=== PATIENT | male | born 1960 | race Caucasian/White ===

== ENCOUNTER 2016-11-06 23:02 | Emergency (ER) | payer BC ==
[~2016-11-06 23:02] MED LIST: ACAMPROSATE CALCIUM PO; CARDIZEM LA240 MG PO; FUROSEMIDE40 MG PO; VICODIN EQUIVAL1 TAB PO
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
--- NOTE | 2016-11-07 00:12 | ED ORDER SUMMARY ---
..... Patient: HILLARY COPE OrderSheet [facility] VisitID: [id number] [address] [place] [address] 56y, M Registration Date/Time: 11/06/2016 ORDER SHEET Weight: 95.2 kg (stated) Allergies: Hydrocodone GENERAL ORDERS: CT Head wo Cont (posterior scalp hematoma; patient intoxicated) Urgent (23:20 11/06/2016 [facility]) (Ack 23:30 Ced) (23:45 Filippo) Breathalyzer (23:23 11/06/2016 [facility]) (Ack 23:24 HKone R.N.) (0:08 Martha RAWLS Bank Manager) (0:09 HKone R.N.) MEDICATION ORDERS: Acetaminophen PO 500 mg (NOW) (23:54 [facility]/06/2016 [facility] ) (Ack 0:05 HKone R.N.) (0:09 HKone R.N.) IV FLUIDS: ORDER SHEET NOTES: [Electronically signed by Chencho Caba DO (01:43 11/07/2016)] [Electronically signed by Petrona Medrano R.N. (05:56 11/07/2016)] [Electronically locked/signed by Petrona Medrano R.N. (05:56 11/07/2016)]
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
--- NOTE | 2016-11-07 00:12 | ED ORDER SUMMARY ---
..... Patient: HILLARY COPE OrderSheet [facility] VisitID: [id number] [address] [place] [address] 56y, M Registration Date/Time: 11/06/2016 ORDER SHEET Weight: 95.2 kg (stated) Allergies: Hydrocodone GENERAL ORDERS: CT Head wo Cont (posterior scalp hematoma; patient intoxicated) Urgent (23:20 11/06/2016 [facility]) (Ack 23:30 Ced) (23:45 Filippo) Breathalyzer (23:23 11/06/2016 [facility]) (Ack 23:24 HKone R.N.) (0:08 Martha RAWLS Electronic Test Technician) (0:09 HKone R.N.) MEDICATION ORDERS: Acetaminophen PO 500 mg (NOW) (23:54 [facility]06[facility]2016 [facility] (Ack 0:05 HKone R.N.) (0:09 HKone R.N.) IV FLUIDS: ORDER SHEET NOTES: [Electronically signed by Chencho Caba DO (01:43 11/07/2016)] [Electronically signed by Petrona Medrano R.N. (05:56 11/07/2016)] [Electronically locked/signed by Petrona Medrano R.N. (05:56 11/07/2016)]
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
--- NOTE | 2016-11-07 05:57 | ED MAR SUMMARY ---
..... Medication Administration Record [address] [place] [address] Patient: HILLARY COPE Visit ID: [id number] 56y, M Weight: 95.2 kg Height/Length: 72 in BMI: 28.5 ALLERGIES: Hydrocodone Given 00:09 11/07/2016 Petrona Medrano R.N. Medication Administered: ACETAMINOPHEN [PO] (APAP), Dose: 500 mg Tablets PO. Medication Ordered: Acetaminophen PO 500 mg (NOW).
--- NOTE | 2016-11-07 05:57 | ED MED RECONCILIATION SUMMARY ---
Patient: HILLARY COPE Medication Reconciliation Report [facility] VisitID: [id number] [address] [place] [address] 56y, M Registration Date/Time: 11/06/2016 Weight: 95.2 kg Height/Length: 72 in. BMI: 28.5 ALLERGIES: Hydrocodone The patient's Home Medications are listed below: CONTINUE TAKING THE FOLLOWING MEDICATIONS: Furosemide Oral Lisinopril Oral The source(s) of the original Home Medication information: patient The following Medications were given to the patient in the Emergency Department: Acetaminophen [PO] PO 500 mg, administered: 11/07/2016 12:09:00 AM The following Medications were prescribed to the patient: Acetaminophen (available over the counter): take according to label instructions. -- Chencho Caba DO Motrin (available over the counter): take according to label instructions. -- Chencho Caba DO
--- NOTE | 2016-11-07 05:57 | ED MAR SUMMARY ---
..... Medication Administration Record [address] [place] [address] Patient: HILLARY COPE Visit ID: [id number] 56y, M Weight: 95.2 kg Height/Length: 72 in BMI: 28.5 ALLERGIES: Hydrocodone Given 00:09 11/07/2016 Petrona Medrano R.N. Medication Administered: ACETAMINOPHEN [PO] (APAP), Dose: 500 mg Tablets PO. Medication Ordered: Acetaminophen PO 500 mg (NOW).
--- NOTE | 2016-11-07 05:57 | ED MED RECONCILIATION SUMMARY ---
Patient: HILLARY COPE Medication Reconciliation Report [facility] VisitID: [id number] [address] [place] [address] 56y, M Registration Date/Time: 11/06/2016 Weight: 95.2 kg Height/Length: 72 in. BMI: 28.5 ALLERGIES: Hydrocodone The patient's Home Medications are listed below: CONTINUE TAKING THE FOLLOWING MEDICATIONS: Furosemide Oral Lisinopril Oral The source(s) of the original Home Medication information: patient The following Medications were given to the patient in the Emergency Department: Acetaminophen [PO] PO 500 mg, administered: 11/07/2016 12:09:00 AM The following Medications were prescribed to the patient: Acetaminophen (available over the counter): take according to label instructions. -- Chencho Caba DO Motrin (available over the counter): take according to label instructions. -- Chencho Caba DO
== END 2016-11-07 00:17 | disposition home or self-care (01) ==
LOC: ED SRH 23:02
DX: S00.03XA Contusion of scalp, initial encounter (principal); S40.022A Contusion of left upper arm, initial encounter; F10.220 Alcohol dependence with intoxication, uncomplicated; I10 Essential (primary) hypertension; Y04.8XXA Assault by other bodily force, initial encounter; Y93.9 Activity, unspecified; Y92.009 Unspecified place in unspecified non-institutional (private) residence as the place of occurrence of the external cause; Y99.9 Unspecified external cause status; Z79.899 Other long term (current) drug therapy

== ENCOUNTER 2017-01-16 09:59 | Inpatient (IN) | payer BC ==
[~2017-01-16] VITALS: Ht 190.5 cm; Wt 95.3 kg
--- NOTE | 2017-01-16 11:20 | DIAGNOSTIC IMAGING REPORT ---
PROCEDURE: CT HEAD WITHOUT CONTRAST INDICATION: NEW-[place] SZ TECHNIQUE: Noncontrast axial images with sagittal and coronal reformations. COMPARISON: None. FINDINGS: Moderate cortical atrophy. Normal ventricular system and brain parenchyma. Small left cord fissure cyst. No evidence of acute intracranial process. Resolving left parietal scalp contusion. Minor left frontal, ethmoid, right sphenoid and bilateral maxillary sinus mucosal thickening. Mastoids are clear. IMPRESSION: 1. Resolving left parietal scalp contusion. 2. Moderate cortical atrophy 3. Findings discussed with Dr. Ng at 11:18 a.m.[facility] Time
--- NOTE | 2017-01-16 11:20 | DIAGNOSTIC IMAGING REPORT ---
PROCEDURE: CT HEAD WITHOUT CONTRAST INDICATION: [place] SZ TECHNIQUE: Noncontrast axial images with sagittal and coronal reformations. COMPARISON: None. FINDINGS: Moderate cortical atrophy. Normal ventricular system and brain parenchyma. Small left cord fissure cyst. No evidence of acute intracranial process. Resolving left parietal scalp contusion. Minor left frontal, ethmoid, right sphenoid and bilateral maxillary sinus mucosal thickening. Mastoids are clear. IMPRESSION: 1. Resolving left parietal scalp contusion. 2. Moderate cortical atrophy 3. Findings discussed with Dr. Ng at 11:18 a.m.[facility] Time
--- NOTE | 2017-01-16 11:22 | DIAGNOSTIC IMAGING REPORT ---
PROCEDURE: XR CHEST 2 VIEW INDICATION: FEVER TECHNIQUE: PA and lateral view. COMPARISON: None. FINDINGS: Lungs are clear. Heart size, mediastinum and pulmonary vessels are normal. Mildly tortuous aorta. Partial eventration of the right hemidiaphragm. Chronic fractures of the lower thoracic and upper lumbar spine. IMPRESSION: 1. No acute changes.
--- NOTE | 2017-01-16 12:33 | ED CLINICAL REPORT ---
Clinical Report - Physicians/Mid Levels [facility] [address] [place] [address] 01/16/2017 9:58 Patient: HILLARY COPE Time Seen: 1000. Arrived- By ambulance. Historian- patient and EMS personnel. HISTORY OF PRESENT ILLNESS Chief Complaint: FEVER and SHAKING. possible seizure. This started atient states he started to feel generally unwell about 2 days ago after his had been sick. He states he did not have specific symptoms just did not feel well. Patient states that the next day he felt better however. and is still present. He has had measured fever of 103 F. No muscle aches, loss of appetite, chest pain, dyspnea or cough. No decreased oral intake, diarrhea, altered mental status, skin breakdown noted or joint pain. He has had fatigue. No decreased urine output. He has had skin rash (Patient has chronic psoriasis.). Additional history - The patient has had contact with a sick spouse. ( had generalized illness without specific symptoms per patient.). Has not recently been ill. He is not immunocompromised. No organ transplant. No recent hospitalization. No new medication recently administered. No history of cancer. No history of HIV illness. No indwelling line. No recent travel. No known exposure to an animal. No drug use. No alcohol recently. No Alatorre catheter. Patient denies noticing any pain or redness in his lower extremities other than his chronic psoriatic rash. per EMSpatient's awoke to find the patient hot and shaking in bed. When the looked at the patient she found he was foaming at the mouth. Seizure like activity is estimated to have lasted 10-12 minutes. When EMS arrived patient appeared post ictal. Per medics he is improved over the course of transport. Patient has no seizure history, including no history of febrile seizures as a child and no history of alcohol-related seizures. Patient has had no recent head injury. Patient denies any neck pain or stiffness. He denies headache or photophobia. Similar symptoms previously: None. Recent medical care: ( Patient's primary doctor is Dr. Worthy.). Not recently seen/assessed. REVIEW OF SYSTEMS No anorexia, weight loss, palpitations, calf pain or sputum production. No nausea, constipation, black stools, difficulty with urination or flank pain. No vomiting, headache, sinus pain, sore throat or easy bruising. No enlarged lymph nodes, neck pain or back pain. All systems otherwise negative, except as recorded above. PAST HISTORY Problems: Alcohol Intoxication. Dehydration. Hypertension. Tetanus Status. Additional Surgeries: Hip Surgery. Inguinal Hernia Repair. Shoulder Surgery. SOCIAL HISTORY Former smoker. Occasional alcohol use. No drug use. PHYSICAL EXAM Appearance: Alert. No acute distress. (Patient is well-appearing. He is alert and answers questions briskly and appropriately.). Eyes: Pupils equal, round and reactive to light. Eyes normal inspection. ENT: Ears normal. Nose normal. Pharynx normal. Uvula midline. Neck: Normal inspection. Neck supple. No meningeal signs. CVS: Normal heart rate and rhythm. Heart sounds normal. Pulses normal. Respiratory: No respiratory distress. Breath sounds normal. Abdomen: Soft and nontender. Back: Normal inspection. No tenderness. Skin: Skin warm and dry. Normal skin turgor. (Patient has a psoriatic-appearing rash on his bilateral lower extremities. His left calf is otherwise normal. His right lower leg, however, is intensely erythematous from the ankle to just below the knee.). Extremities: Extremities exhibit normal ROM. Extremities nontender. Neuro: Oriented X 3. No motor deficit. No sensory deficit. (Patient is alert and appropriate. He does not appear postictal at this time.). LABS, X-RAYS, AND EKG Rhythm Strip #1: Time: (1002). Rate= 124. Sinus tachycardia. Regular rhythm. Narrow QRS complexes. No ectopy. Conduction normal. Normal ST segments and T waves. The study was interpreted by me. Chest X-ray: No acute disease. Normal lung markings present. Normal heart size. Mediastinum normal. Great vessels normal. Soft tissues normal. No infiltrate. No fracture. No bony lesion present. Views: PA and lateral. Technique: good. The X-rays were independently viewed by me, interpreted by the radiologist and contemporaneously by me and discussed with the radiologist. Prior films were not available for comparison. Laboratory Tests: UA-Culture if indicated: (IVAN: 01/16/2017 11:23) ( MsgRcvd 01/16/2017 11:46) Final results Test Result Flag Units (Reference) URINE COLOR YELLOW URINE APPEARANCE CLEAR URINE GLUCOSE 1+ (NEGATIVE) URINE BILIRUBIN NEGATIVE (NEGATIVE) URINE KETONE NEGATIVE (NEGATIVE) URINE SPECIFIC GRAVITY 1.025 (1.010-1.030) URINE PH 6.0 (5.0-8.0) URINE PROTEIN 1+ (NEGATIVE) URINE UROBILINOGEN 0.2 EU/dL (0.2-1.0) URINE NITRITE NEGATIVE (NEGATIVE) URINE BLOOD 3+ (NEGATIVE) URINE LEUK ESTERASE NEGATIVE (NEGATIVE) URINE RBC 0-1 rbc/hpf (0-1) URINE WBC NONE SEEN wbc/hpf (0-1) URINE EPITHELIAL CELLS 0-1 EPI/hpf (0-5) URINE BACTERIA TRACE (<1+) (NONE SEEN) URINE COMMENT CULT NOT INDICATED 1-3 HYALINE CASTS/lpfURINE CULTURES ARE SET-UP BASED ON THE FOLLOWING CRITERIA:POSITIVE NITRITEPOSITIVE LEUKOCYTE ESTERASEGREATER THAN 10 WHITE BLOOD CELLSMODERATE (2+) OR GREATER BACTERIA CBC w Diff: (IVAN: 01/16/2017 10:32) ( MsgRcvd 01/16/2017 10:53) Final results Test Result Flag Units (Reference) WHITE BLOOD COUNT 14.9 # H K/uL (4.5-11.5) RED BLOOD COUNT 4.77 M/uL (4.50-5.90) HEMOGLOBIN 14.4 gm/dL (13.5-17.5) HEMATOCRIT 43.3 % (41.0-53.0) MEAN CELL VOLUME 91 fL (80-100) MEAN CORPUSCULAR HGB 30 pg (26-34) MEAN CORPUSCULAR HGB CONC 33 g/dL (31-37) RED CELL DISTRIBUTION WIDTH 17.8 H % (11.6-14.8) PLATELET COUNT 202 K/uL (150-400) NEUTROPHIL % 91.4 H % (50-75) LYMPH % 4.2 L % (25-40) MONO % 4.3 % (3-14) EOSINOPHIL % 0 % (0-4) BASOPHIL % 0.1 % (0-2) [id number]: (IVAN: 01/16/2017 10:32) ( [facility] 01/16/2017 15:12) Final results Test Result Flag Units (Reference) C-REACTIVE PROTEIN 17.1 H mg/dL (0.0-0.9) Lactate, Serum: (IVAN: 01/16/2017 10:32) ( [facility] 01/16/2017 11:24) Final results Test Result Flag Units (Reference) LACTIC ACID 3.2 H mmol/L (0.4-2.0) CRITICAL RESULTS CALLEDCalled to [facility] IN ED 01/16/17 1123Were 2 patient identifiers used? YWas the result read back? N CMP: (IVAN: 01/16/2017 10:32) ( [facility] 01/16/2017 11:10) Final results Test Result Flag Units (Reference) GLUCOSE 144 H mg/dL (70-110) BUN 7 mg/dL (7-18) CREATININE 1.0 mg/dL (0.6-1.3) Estimated GFR >60 mL/min Estimated GFR- >60 mL/min Note: Persistent reduction over 3 months in eGFR<60 mL/min/1.73 m2 defines CKD. Patients with eGFR values>=60 mL/min/1.73 m2 may also have CKD if evidence ofpersistent proteinuria. Additional information may be foundat [email or web address].org. SODIUM 135 # L mmol/L (136-145) POTASSIUM 3.1 # L mmol/L (3.5-5.1) CHLORIDE 98 mmol/L (98-107) CARBON DIOXIDE 25 mmol/L (21-32) CALCIUM 7.9 L mg/dL (8.5-10.1) TOTAL PROTEIN 6.9 g/dL (6.4-8.2) ALBUMIN 2.9 L g/dL (3.3-5.0) BILIRUBIN, TOTAL 0.4 mg/dL (0.0-1.0) ALKALINE PHOSPHATASE 76 U/L (46-116) AST (SGOT) 44 H U/L (15-37) ALT (SGPT) 32 U/L (12-78) CSF, Cell Count: (IVAN: 01/16/2017 14:00) ( [facility] [place] 01/16/2017 15:02) Final results Test Result Flag Units (Reference) CSF TOTAL VOLUME 4.0 CC TUBE # 4 COLOR COLORLESS APPEARANCE CLEAR CSF WBC 0 WBC/mm3 (0-5) CSF RBC 0 RBC/mm3 (0-5) CSF GLUCOSE 93 H mg/dL (40-75) CSF PROTEIN 33.7 mg/dL (15-45) CSF, Culture: (IVAN: 01/16/2017 14:00) ( [facility] 01/16/2017 15:10) IP Test Result Flag Units (Reference) GRAM STAIN, CSF DATE: 01/16/17 NO CELLS/NO BACTERIA: NO CELLS OR BACTERIA SEEN Rapid Influenza Screen: (IVAN: 01/16/2017 14:06) ( [facility] 01/16/2017 14:39) Final results SPECIMEN DESCRIPTION: SWAB Test Result Flag Units (Reference) RAPID INFLUENZA SCREEN DATE: 01/16/17 INFLUENZA A: NEGATIVE SCREEN FOR INFLUENZA A INFLUENZA B: NEGATIVE SCREEN FOR INFLUENZA B . Pulse Oximetry: 01/16/2017 09:55 O2 saturation: 96%. (FIO2 - room air). Interpretation: normal. PROGRESS AND PROCEDURES Procedural Sedation: Indication: (Anxiolysis for LP). Last po intake: patient had liquid 1 hours ago. ASA classification: 2 - patient with mild systemic disease. History / physical exam. See physical exam recorded above. He has no history of an adverse anesthesia reaction or family history of an adverse anesthesia reaction. Normal airway anatomy. Preparation: consent was obtained and the risks of the procedure, benefits and alternatives were explained. IV established. O2 administered. Placed on pulse oximeter and national stormwater leader. Suction was made available. Medications: Versed IV administered by nurse. Patient status during sedation: was asleep. Vitals were stable. Oxygen saturation levels were normal. The airway was maintained. The recovery was uneventful. Complications: None. Post-procedure: Recovery was uneventful. Sedation and procedure performed by me; intra-service time 1-15 minutes. Lumbar Puncture: Lumbar puncture performed by me. Risks, benefits and alternatives were discussed. Consent was obtained from relative. Sterile technique was used. The area was cleansed with Betadine. Patient was positioned right side down. LP performed at the L3-4 interspace. A 20g needle was used. No complications observed. Course of Care: This patient was evaluated by myself immediately upon arrival in the emergency department with EMS. He was fairly well-appearing. However I was concerned about the height of his fever and his new onset seizure activity. I did feel that the obvious cellulitis on his right lower leg was certainly a potential source of the fever and as such, I did order IV vancomycin to be started as soon as all the laboratory draws were done. I did consider potential diagnosis of meningitis given his fever and seizure-like activity; however, I did not find any other symptoms concerning for meningitis at this time, such as altered mental status, nuchal rigidity, or neck pain. Patient was also treated for his fever with by mouth Tylenol and IV Toradol. He was given a liter of normal saline as a bolus. Patient was found to have an elevated white blood cell count which is not surprising, but otherwise his workup did not reveal an additional source of infection. Patient was found to have an elevated lactate level. I did feel the patient should be worked up with a lumbar puncture due to his elevated lactate level and new onset seizure. I did discuss this with the patient and his family. The patient's stated that the patient's deathly afraid of needles and the patient initially declined to have an LP done. However, I did offer him sedation in order to be able to successfully complete the procedure, and the patient did agree to this. Patient was sedated with Versed as noted above and lumbar puncture was performed without difficulty. Patient's CSF studies were unremarkable. He remained hemodynamically stable throughout his stay in the emergency department. Discussed case with hospitalist, (Krystle). Reviewed test results and need for additional work-up. Agreed upon treatment plan and decision to admit. Health care provider will see patient in ED. Patient and family counseled in person regarding the patient's serious condition, test results, diagnosis and need for admission. Old medical records reviewed. Disposition: Admitted to Acute Care. Condition: stable and serious. CLINICAL IMPRESSION New onset generalized seizure of unknown cause, associated with illness. Cellulitis of the right lower leg and right ankle. Possible sepsis (With elevated lactate level and tachycardia). (Electronically signed by Kathya Ng MD 01/19/2017 22:42)
--- NOTE | 2017-01-16 12:33 | ED ORDER SUMMARY ---
..... Patient: HILLARY COPE OrderSheet [facility] VisitID: [id number] [address] [place] [address] 56y, M Registration Date/Time: 01/16/2017 ORDER SHEET Weight: 97.5 kg (stated) Allergies: Hydrocodone GENERAL ORDERS: Blood Culture (No) (N/A) Urgent (10:17 01/16/2017 Venkatesh MATUTE) (Ack 10:24 PWeiler ER Tech1) (10:44 RMarsden R.N.) Chest 2V Urgent (10:18 01/16/2017 Vnekatesh MATUTE) (Ack 10:24 PWeiler ER Tech1) (10:51 JSimbeck R.N.) Cutter Barrel Drum (Continuous) (10:01/16/2017 Venkatesh MATUTE) (10:26 JSimbeck R.N.) CT Head wo Cont Urgent (10:01/16/2017 Venkatesh MATUTE) (Ack 10:24 PWeiler ER Tech1) (10:51 JSimbeck R.N.) CBC w Diff Urgent (10:19 01/16/2017 Venkatesh MATUTE) (Ack 10:24 PWeiler ER Tech1) (10:44 RMarsden R.N.) CMP Urgent (10:19 01/16/2017 Venkatesh MATUTE) (Ack 10:24 PWeiler ER Tech1) (10:44 RMarsden R.N.) UA-Culture if indicated Urgent (10:01/16/2017 Venkatesh MATUTE) (Ack 10:24 PWeiler ER Tech1) (11:11 RMarsden R.N.) Lactate, Serum Urgent (10:19 01/16/2017 Venkatesh MATUTE) (Ack 10:24 PWeiler ER Tech1) (10:44 RMarsden R.N.) Pulse oximeter (10:01/16/2017 Venkatesh MATUTE) (10:26 JSimbeck R.N.) Rapid Influenza Screen (Nasal Pharyngeal) (swab) Urgent (12:46 01/16/2017 Venkatesh MATUTE) (Ack 12:51 PWeiler ER Tech1) (14:09 JSimbeck R.N.) Tibia/Fibula Right Urgent (13:23 01/16/2017 Venkatesh MATUTE) (Ack 13:29 PWeiler ER Tech1) Toe Right Urgent (13:01/16/2017 Venkatesh MATUTE) (Ack 13:29 PWeiler ER Tech1) CSF, Cell Count Urgent (13:01/16/2017 Venkatesh MATUTE) (Ack 13:29 PWeilola ER Tech1) (14:10 JSimbeck R.N.) CSF, Culture Urgent (13:01/16/2017 Venkatesh MATUTE) (Ack 13:29 PWeiler ER Tech1) (14:10 JSimbeck R.N.) CSF, Glucose Urgent (13:01/16/2017 Venkatesh MATUTE) (Ack 13:29 EMMIEeilola ER Tech1) (14:10 JSimbeck R.N.) CSF, Protein Urgent (13:01/16/2017 Venkatesh MATUTE) (Ack 13:29 PWeiler ER Tech1) (14:10 JSimbeck R.N.) MEDICATION ORDERS: Acetaminophen PO 1,000 mg (NOW) (10:01/16/2017 Venkatesh MATUTE) (10:43 RMarsden R.N.) IV FLUIDS: IV NS : initial bolus 1000 mL (1000 mL/hr), then none - (NOW) (10:01/16/2017 Venkatesh MATUTE) (10:45 RMarsden R.N.) Toradol IV 30 mg (NOW) (10:01/16/2017 Venkatesh MATUTE) (10:42 RMarsden R.N.) Vancomycin IV 2 gm/500 mL (NOW) (10:19 01/16/2017 Venkatesh MATUTE) (Ack 10:45 RMarsden R.N.) (11:26 RMarsden R.N.) IV NS with Normal Saline 1 Liter: initial bolus none -, then TKO - for X1 (NOW) (11:28 01/16/2017 RMarsden R.N. per protocol) (Ack 11:29 RMarsden R.N.) (11:42 RMarsden R.N.) Versed IV 2 mg (NOW) (14:11 01/16/2017 JSimbeck R.N. verbal order read back to Venkatesh MATUTE) (14:41 RMarsden R.N.) Versed IV 2 mg (NOW) (14:11 01/16/2017 Lizz Villarreal verbal order read back to Venkatesh MATUTE) (14:41 Jeanette Villarreal) Versed IV 2 mg (NOW) (14:12 01/16/2017 Lizz Villarreal verbal order read back to Venkatesh MATUTE) (14:42 Jeanette Villarreal) ORDER SHEET NOTES: [Electronically signed by Geovanna Nettles R.N. (18:16 01/16/2017)] [Electronically signed by Kathya Ng MD (22:42 01/19/2017)] [Electronically locked/signed by Geovanna Nettles R.N. (18:16 01/16/2017)]
--- NOTE | 2017-01-16 12:33 | ED NURSING NOTES ---
Clinical Report - Nurses [facility] [place] [address] 01/16/2017 9:58 [id number] TRI[facility] Triage time 10:00. Acuity: LEVEL 2. Chief Complaint: FEVER (seizure). 11:00 01/16/17. Alert. No acute distress. SEPSIS SCREEN: Sepsis Screen. Negative (no infection suspected/documented). JANET COMA SCORE: [place] Coma Scale: 15- eyes open spontaneously (4); best verbal response- oriented x 4 (5); best motor response- obeys commands (6). --11:00 Geovanna Nettles R.N. 09:55 01/16/17. BP: 150/83. HR: 129. RR: 21. O2 saturation: 96%. Temp: 100.5 F (oral). Pain level now: 11/26. --11:00 Geovanna Nettles R.N. ( All triage took place at 10:00). --11:09 Geovanna Nettles R.N. 10:15. SEPSIS SCREEN: Sepsis Screen: positive. Infection suspected/documented. Temperature greater than 38.3 degrees C (101 degrees F), heart rate greater than 90 and respiratory rate greater than 20. Physician notified and protocol initiated. --11:14 Deion Cheung R.N. Weight: 97.5 kg stated. Height/Length: 72 inches Per Patient. BMI: 29.2. --10:00 Deion Cheung R.N. Medications Diltiazem HCl Oral. --10:53 Geovanna Nettles R.N. Furosemide Oral. --11:38 Deion Cheung R.N. Allergies Hydrocodone. --10:53 Geovanna Nettles R.N. History Arrived by EMS. Historian: patient. Accompanied by family. This started yesterday. Treatment INDUSTRIAL RELATIONS OFFICER: None. PAST MEDICAL HX: Immunizations: up-to-date. SOCIAL HX: Never smoker. No alcohol use or drug use. FALL RISK ASSESSMENT: Fall risk assessment completed. No fall risk identified. NUTRITIONAL RISK ASSESSMENT: The nutritional risk assessment revealed no deficiencies. FUNCTIONAL ASSESSMENT: Functional assessment: no impairments noted. LEARNING NEEDS ASSESSMENT: The learning needs assessment revealed no barriers. SKIN INTEGRITY ASSESSMENT: Skin integrity risk assessment completed. No skin integrity risk identified. --11:00 Geovanna Nettles R.N. PROBLEMS: Mechanism of Injury. Alcohol Intoxication. Contusion. Dehydration. Gastritis. Laceration. Hypertension. Tetanus Status. --10:53 Geovanna Nettles R.N. Spleen injury. --11:21 Deion Cheung R.N. ADDITIONAL SURGERIES: Hip Surgery. Inguinal Hernia Repair. Shoulder Surgery. --10:53 Geovanna Nettles R.N. Spleen surgery. --11:21 Deion Cheung R.N. Interventions ID band on patient. ID band checked. SEPSIS protocol initiated at triage. To treatment room. --11:00 Geovanna Nettles R.N. PHYSICAL ASSESSMENT 10:00. GENERAL / NEURO / PSYCH: Alert. Oriented X 4. Appears in no acute distress. ( Patient appears to have some short-term memory loss over the events of the last 24 hours. Patient remembers going to bed last night, and then remembers waking up to EMS at his house. Patient appears drowsy, but is easily aroused.). HEENT: Pupils equal, round and reactive to light. No facial asymmetry noted. Mucous membranes are pink. RESPIRATORY: Chest nontender. Breath sounds within normal limits. ( Patient was tachypnic). CVS: Capillary refill less than 2 seconds. Pulses within normal limits. GI / : Abdomen soft and nontender and normal bowel sounds. EXTREMITIES: Skin intact on the extremities. Capillary refill is less than 2 seconds in the extremities. Extremity pulses are within normal limits. Extremities exhibit normal ROM. SKIN: Large area of erythema with warmth and swelling to right leg (3+ edema). Skin rash located on the left leg (psoriasis noted). Skin intact. Skin is warm and dry. Normal skin turgor. --11:08 Geovanna Nettles R.N. NURSING PROGRESS NOTES 09:50 01/16/2017 Site #1 started prior to arrival by EMS via IV in the right antecubital space with an 18g angiocath. --10:39 Geovanna Nettles R.N. 09:50 01/16/2017 Started bag #1 1000 mL IV Fluids IV NS (Saline); bolus of 1000 mL wide open via site #1. Allergies verified and confirmed 5 rights. IV patency established. IV site checked: no pain, redness, or swelling. IV flushed thoroughly pre- and post-medication administration. Completed per protocol. --10:45 Geovanna Nettles R.N. 10:25 01/16/2017 Site #2 started via IV in the left forearm with an 18g angiocath; two attempts. Blood drawn: rainbow set and cultures x1. Labeled in the presence of the patient and sent to the lab. Saline lock flushed with 10 mL saline. --11:10 Geovanna Nettles R.N. 10:40 01/16/2017 Toradol IVP 30 mg given over 2 minute(s) via site #1. Allergies verified and confirmed 5 rights. IV patency established. IV site checked: no pain, redness, or swelling. IV flushed thoroughly pre- and post-medication administration. IVP given by RN. --10:42 Geovanna Nettles R.N. 10:43 01/16/2017 Acetaminophen (APAP) PO Tablets 1000 mg given. Allergies verified and confirmed 5 rights. --10:43 Geovanna Nettles R.N. 10:44 01/16/17. Patient transported to CT by stretcher with tech. --10:44 Geovanna Nettles R.N. <<STRICKEN ENTRY-- 11:11 01/16/17. Blood samples drawn. Patient gowned. Patient returned from CT by stretcher with tech. --11:11 Geovanna Nettles R.N. --END STRIKE>> Correction --11:11 Geovanna Nettles R.N. 11:11 01/16/17. Patient returned from CT by stretcher with tech. --11:11 Geovanna Nettles R.N. Lactate level: 3.2. ED physician notifed of critical value. Orders were not received. --11:24 Deion Cheung R.N. 11:14 01/16/2017 IV Fluids IV NS Discontinued: bag #1 completed. Total amount infused: 1000 mL. IV patency established. IV site checked: no pain, redness, or swelling. IV flushed thoroughly. --11:29 Geovanna Nettles R.N. 11:21 01/16/2017 Started 2 gm of Vancomycin IVPB in bag #1 400 mL; at 200 mL/hr over 1 hour(s) via site #2; Allergies verified and confirmed 5 rights. IV patency established. IV site checked: no pain, redness, or swelling. IV flushed thoroughly pre- and post-medication administration. Completed per protocol. --11:26 Geovanna Nettles R.N. 11:42 01/16/2017 Started bag #1 1000 mL IV Fluids IV NS (Saline); at 50 mL/hr over 20 hour(s) via site #1 via IV pump. Allergies verified and confirmed 5 rights. IV patency established. IV site checked: no pain, redness, or swelling. IV flushed thoroughly pre- and post-medication administration. Completed per protocol. --11:42 Geovanna Nettles R.N. 10:05 01/16/17. Temp: 102.1 F (rectal). --12:05 Deion Cheung R.N. <<STRICKEN ENTRY-- 10:00 01/16/17. BP: 150/83 taken on the left arm, while lying. HR: 121 (regular and tachycardic). RR: 21. O2 saturation: 97%. Temp: 102.1 F (rectal). Pain level now: 11/26. --12:26 Geovanna Nettles R.N. --END STRIKE>> Correction. --12:27 Geovanna Nettles R.N. 10:15 01/16/17. BP: 150/83 taken on the left arm, while lying. HR: 121 (regular and tachycardic). RR: 21. O2 saturation: 97%. Temp: 102.1 F (rectal). Pain level now: 11/26. --12:26 Geovanna Nettles R.N. 10:15 01/16/17. BP: 150/83 taken on the left arm, while lying. HR: 121 (regular and tachycardic). RR: 21. O2 saturation: 97%. Temp: 102.1 F (rectal). Pain level now: 11/26. --12:35 Geovanna Nettles R.NSarath 10:30 01/16/17. HR: 121. RR: 22. O2 saturation: 98%. --12:35 Geovanna Nettles R.NSarath 12:36 01/16/17. ( patient ambulated to bathroom with nurse and patient's .). --12:36 Geovanna Nettles R.NSarath 11:00 01/16/17. HR: 120. RR: 20. O2 saturation: 93%. --12:37 Geovanna Nettles R.NSarath 11:15 01/16/17. BP: 125/85. HR: 117. RR: 20. O2 saturation: 94%. Pain level now: 11/26. --12:38 Geovanna Nettles R.NSarath 11:30 01/16/17. BP: 138/79. HR: 114. RR: 19. O2 saturation: 94%. --12:38 Geovanna Nettles R.NSarath 11:45 01/16/17. BP: 123/84. HR: 113. RR: 17. O2 saturation: 95%. --12:40 Geovanna Nettles R.NSarath 12:00 01/16/17. BP: 126/88. HR: 108. RR: 17. O2 saturation: 94%. --12:54 Geovanna Nettles R.NSarath 12:15 01/16/17. BP: 136/91. HR: 116. RR: 16. O2 saturation: 96%. --12:55 Geovanna Nettles R.NSarath 12:30 01/16/17. BP: 135/83. HR: 116. RR: 21. O2 saturation: 93%. --12:56 Geovanna Nettles R.NSarath 12:45 01/16/17. BP: 135/83. HR: 109. RR: 17. O2 saturation: 92%. --12:56 Geovanna Nettles R.NSarath 11:45 01/16/2017 IV Fluids IV NS Bag Change. STARTED bag #2 at 50 mL/hr via IV pump. Confirmed 5 rights. IV patency established. IV site checked: no pain, redness, or swelling. IV flushed thoroughly. --14:16 Deion Cheung R.N. 13:50 01/16/2017 Versed (Midazolam HCl) IVP 2 mg given over 30 second(s) via site #1. Sedative warning given to the patient and patient's family. IV patency established. IV site checked: no pain, redness, or swelling. IV flushed thoroughly pre- and post-medication administration. IVP given by RN. --14:41 Geovanna Nettles R.N. 13:54 01/16/2017 Versed (Midazolam HCl) IVP 2 mg given over 30 second(s) via site #1. Sedative warning given to the patient and patient's family. IV patency established. IV site checked: no pain, redness, or swelling. IV flushed thoroughly pre- and post-medication administration. IVP given by RN. --14:41 Geovanna Nettles R.N. 14:00 01/16/2017 Versed (Midazolam HCl) IVP 2 mg given over 2 minute(s) via site #1. Sedative warning given to the patient and patient's family. IV patency established. IV site checked: no pain, redness, or swelling. IV flushed thoroughly pre- and post-medication administration. IVP given by RN. --14:42 Geovanna Nettles R.N. 14:02 01/16/2017 Vancomycin IVPB Discontinued: completed. Total amount infused: 400 mL. IV patency established. IV site checked: no pain, redness, or swelling. IV flushed thoroughly. --14:42 Geovanna Nettles R.N. 13:00 01/16/17. BP: 127/81. HR: 107. RR: 17. O2 saturation: 97%. Temp: 97.8 F (oral). Pain level now: 10/29. --18:04 Geovanna Nettles R.N. 13:15 01/16/17. BP: 121/82. HR: 110. RR: 18. O2 saturation: 96%. --18:05 Geovanna Nettles R.N. 13:30 01/16/17. BP: 133/85. HR: 106. RR: 17. O2 saturation: 94%. --18:06 Geovanna Nettles R.N. 13:45 01/16/17. BP: 100/53. HR: 111. RR: 18. O2 saturation: 93%. --18:06 Geovanna Nettles R.N. 14:00 01/16/17. BP: 101/67. HR: 109. RR: 18. O2 saturation: 93%. --18:07 Geovanna Nettles R.N. 14:15 01/16/17. BP: 99/63. HR: 107. RR: 17. O2 saturation: 96% on nasal cannula at 2 liters/minute. Pain level now: 0/10. --18:08 Geovanna Nettles R.N. 14:30 01/16/17. BP: 98/53. HR: 105. RR: 17. O2 saturation: 99%. Pain level now: 0/10. --18:09 Geovanna Nettles R.N. 14:45 01/16/17. BP: 130/93. HR: 100. RR: 16. O2 saturation: 99%. Temp: 97.5 F (oral). Pain level now: 2/10. --18:10 Geovanna Nettles R.N. 15:00 01/16/17. BP: 129/94. HR: 102. RR: 17. O2 saturation: 98%. Pain level now: 0/10. --18:11 Geovanna Nettles R.N. ( Patient was placed on 2L O2 at 13:45 and remained on O2 for the duration of his stay in the ED. Patient was transported to the floor on 2L O2.). --18:13 Geovanna Nettles R.N. 15:00 01/16/2017 Site #1 removed upon admission. Catheter intact. Manual pressure and bandaid applied (Patient's IV fell out when he rolled over during admission transport.). --18:16 Geovanna Nettles R.N. Procedural Sedation Flowsheet Diagnosis: Lumbar puncture for fever, seizure. Procedure performed by ED physician and assisted by two nurses and one machine maintenance technician. Patient / family education: explanation of procedure, procedural sedation process, post procedure process, need for ride home and post procedure sedation instructions given to patient and family. Preparation: ID band on patient and consent obtained per patient; order, History and Physical, and meds documented; pulse oximeter, pvc monitor, NIBP and ETCO2 monitor placed on patient. Oxygen applied to patient via nasal cannula at 2 liter/min. (see procedural sedation documentation for procedure details.). --14:55 Geovanna Nettles R.N. DISPOSITION / DISCHARGE Report was given to a nurse via a phone call. Report included patient's care, treatment, medications, reviewed medication reconcilliation, and condition (including any recent changes or anticipated changes). All questions were answered. Report was acknowledged and care was transferred. Bed obtained (201). --15:10 Geovanna Nettles R.N. 15:08 01/16/17. BP: 130/93. HR: 94. RR: 15. O2 saturation: 95%. Pain level now: 0/10. --15:10 Geovanna Nettles R.N. Admitted to Acute Care (15:05). Transported via stretcher by nurse with IV and O2. --18:12 Geovanna Nettles R.N. 14:45 01/16/17. BP: 130/93. HR: 100. RR: 16. O2 saturation: 99%. Temp: 97.5 F (oral). Pain level now: 2/10. --18:14 Geovanna Nettles R.N. ( IV was saline locked with one bag of saline hanging during admit transport.). --18:15 Geovanna Nettles R.N. Locked/Released at 01/16/2017 18:16 by Geovanna Nettles R.N.
--- NOTE | 2017-01-16 12:33 | ED ORDER SUMMARY ---
..... Patient: HILLARY COPE OrderSheet [facility] VisitID: [id number] [address] [place] [address] 56y, M Registration Date/Time: 01/16/2017 ORDER SHEET Weight: 97.5 kg (stated) Allergies: Hydrocodone GENERAL ORDERS: Blood Culture (No) (N/A) Urgent (10:17 01/16/2017 Venkatesh MATUTE) (Ack 10:24 PWeiler ER Tech1) (10:44 RMarsden R.N.) Chest 2V Urgent (10:18 01/16/2017 Venkatesh MATUTE) (Ack 10:24 PWeiler ER Tech1) (10:51 JSimbeck R.N.) Fish Smoker (Continuous) (10:01/16/2017 Venkatesh MATUTE) (10:26 JSimbeck R.N.) CT Head wo Cont Urgent (10:01/16/2017 Venkatesh MATUTE) (Ack 10:24 PWeiler ER Tech1) (10:51 JSimbeck R.N.) CBC w Diff Urgent (10:19 01/16/2017 Venkatesh MATUTE) (Ack 10:24 PWeiler ER Tech1) (10:44 RMarsden R.N.) CMP Urgent (10:19 01/16/2017 Venkatesh MATUTE) (Ack 10:24 PWeiler ER Tech1) (10:44 RMarsden R.N.) UA-Culture if indicated Urgent (10:01/16/2017 Venkatesh MATUTE) (Ack 10:24 PWeiler ER Tech1) (11:11 RMarsden R.N.) Lactate, Serum Urgent (10:19 01/16/2017 Venkatesh MATUTE) (Ack 10:24 PWeiler ER Tech1) (10:44 RMarsden R.N.) Pulse oximeter (10:01/16/2017 Venkatesh MATUTE) (10:26 JSimbeck R.N.) Rapid Influenza Screen (Nasal Pharyngeal) (swab) Urgent (12:46 01/16/2017 Venkatesh MATUTE) (Ack 12:51 PWeiler ER Tech1) (14:09 JSimbeck R.N.) Tibia/Fibula Right Urgent (13:23 01/16/2017 Venkatesh MATUTE) (Ack 13:29 PWeiler ER Tech1) Toe Right Urgent (13:01/16/2017 Venkatesh MATUTE) (Ack 13:29 PWeiler ER Tech1) CSF, Cell Count Urgent (13:01/16/2017 Venkatesh MATUTE) (Ack 13:29 PWeilola ER Tech1) (14:10 JSimbeck R.N.) CSF, Culture Urgent (13:01/16/2017 Venkatesh MATUTE) (Ack 13:29 PWeiler ER Tech1) (14:10 JSimbeck R.N.) CSF, Glucose Urgent (13:01/16/2017 Venkatesh MATUTE) (Ack 13:29 EMMIEeilola ER Tech1) (14:10 JSimbeck R.N.) CSF, Protein Urgent (13:01/16/2017 Venkatesh MATUTE) (Ack 13:29 PWeiler ER Tech1) (14:10 JSimbeck R.N.) MEDICATION ORDERS: Acetaminophen PO 1,000 mg (NOW) (10:01/16/2017 Venkatesh MATUTE) (10:43 RMarsden R.N.) IV FLUIDS: IV NS : initial bolus 1000 mL (1000 mL/hr), then none - (NOW) (10:01/16/2017 Venkatesh MATUTE) (10:45 RMarsden R.N.) Toradol IV 30 mg (NOW) (10:01/16/2017 Venkatesh MATUTE) (10:42 RMarsden R.N.) Vancomycin IV 2 gm/500 mL (NOW) (10:19 01/16/2017 Venkatesh MATUTE) (Ack 10:45 RMarsden R.N.) (11:26 RMarsden R.N.) IV NS with Normal Saline 1 Liter: initial bolus none -, then TKO - for X1 (NOW) (11:28 01/16/2017 RMarsden R.N. per protocol) (Ack 11:29 RMarsden R.N.) (11:42 RMarsden R.N.) Versed IV 2 mg (NOW) (14:11 01/16/2017 JSimbeck R.N. verbal order read back to Venkatesh MATUTE) (14:41 RMarsden R.N.) Versed IV 2 mg (NOW) (14:11 01/16/2017 Lizz Villarreal verbal order read back to Venkatesh MATUTE) (14:41 Jeanette Villarreal) Versed IV 2 mg (NOW) (14:12 01/16/2017 Lizz Villarreal verbal order read back to Venkatesh MATUTE) (14:42 Jeanette Vilalrreal) ORDER SHEET NOTES: [Electronically signed by Geovanna Nettles R.N. (18:16 01/16/2017)] [Electronically signed by Kathya Ng MD (22:42 01/19/2017)] [Electronically locked/signed by Geovanna Nettles R.N. (18:16 01/16/2017)]
--- NOTE | 2017-01-16 14:52 | Progress Note ---
Subjective General Admission History and Physical Examination Patient Name: Edward Koch Admission Date: January 16, 2017 Primary Care Provider: Arnie Estrada M.D. Attending Physician: Mark Dalton M.D. Admitting Physician: Mark Dalton M.D. Code Status: Full Code Room: , AC-Inpatient SUBJECTIVE Historian: Family (spouse) Reliability: Good Chief Complaint: Right lower extremity pain with infection Seizure and altered mental status, weakness History of Present Illness: The patient is a 56-year-old white female with a significant past medical history of hypertension, psoriasis, alcohol use who presented to [facility] emergency department on the day of admission secondary to complaints of altered right lower leg pain, swelling, redness, infection, mental status, weakness secondary to an a.m. seizure, The [facility] ER evaluation was consistent with acute cellulits of the right leg, in inconclusive etiology for seizure, unknown etiology for weakness and fatigue. Secondary to the above, the patient was admitted by Mark Dalton M.D. for further evaluation and treatment. The history of present was apparently began having illness, not feeling well for nearly 3 days prior to admission. He reports that his family was ill during the 3 days leading up to his illness,. He reports that he was feeling better, but then overnight he had a profound worsening. His found him this morning approxiametely 8:00 am waking up to a fever. He was found to have a fever of 103. She reports that the seizure went on and lasted for nearly 10 minutes. His called the aid car, who confirm patient had likely seizure and he was transported to the [facility] ED. He denied headaches or photophobia. There, he was evaluated and found to have a cellulitis right extremity. He was found to be tachycardic. CT scan of the brain was negative for intracranial process, acute or chronic. Patient was prepped for LP prior to admission. Patient's medical history is relatively unremarkable other than the psoriasis. Patient has not been taking a biologic for the skin, but does use a lotion on the skin,. Patient is on diltiazem for hypertension and he is on Lasix for swelling in the lower extremities. Secondary to the above the patient was admitted for further evaluation and treatment. PAST MEDICAL HISTORY Illnesses: 1. Hypertension 2. Psoriasis 3. Osteoarthritis 4. Gastritis 5. Alcohol use Allergies: 1. Hydrocodone Medications: 1. Diltiazem 180 mg daily. 2. Furosemide 20 mg by mouth daily. Surgery: 1. Hip surgery 2. Inguinal hernia repair. 3. Shoulder surgery Injuries: 1. Shoulder lower extremity Hospitalizations: 1. For above surgery and medical problems FAMILY HISTORY Parents: 1. Father, 87 years old, lalive and well 2. Mother, 79 years old, alive and well Other significant family history: None SOCIAL HISTORY 1. Marital Status 2. Restorationist: Unknown 3. Education: Unknown 4. 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 Occupational health exposures: None HABITS 1. Tobacco: remote hx of smoking 2. Drugs: None 3. Alcohol: daily 2 beers per day. 4. Caffeine: HEALTH SUPERVISION Item/Test; unavailable health record IMMUNIZATIONS: Unavailable health record 1. Pneumococcal: Unknown 2. Influenza: Unknown 3. Tetanus: Unknown ADVANCED DIRECTIVES 1. Living will: None 2. POLST: No 3. CODE STATUS: Full code 4. 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 Donor card: No REVIEW OF SYSTEMS Remarkable for those things stated in the history of present illness and past medical history. 14 point review of system completed with the following notable findings: Constitutional Fever, Weakness. Eyes Denies: Vision Change. ENT Denies: Nose Pain, Nasal Congestion, Throat Swelling. Respiratory Denies: Wheezing. Cardiovascular Denies: Palpitations, PND, Edema. Gastrointestinal Denies: Diarrhea, Constipation. Genitourinary Denies: Hematuria. Musculoskeletal Leg Pain. Skin Other. Neurological Seizures. Denies: Incoordination. Physical Exam Vital Signs / I&Os Vital Signs Date Time Temp Pulse Resp B/P Pulse O2 O2 Flow FiO2 Ox Delivery Rate 01/16 1409 2.0 BP 150/83, heart rate 129, respiratory rate 21, O2 sats 96% room air, temperature 100.5 General Appearance Oriented X3, Cooperative, Mild distress, hypersomnolent, arousable, HEENT PERRLA, EOMI Lungs Clear to auscultation, Normal air movement Neck No JVD Cardiovascular Normal S1 and S2 Abdomen Normal bowel sounds, Soft Extremities No cyanosis, No edema Skin No Breakdown Neurological Normal gait, Normal speech, Cranial nerves intact, No lateralizing signs Psych/Mental Status Mood normal LAB Results Laboratory Tests 01/16 01/16 01/16 01/16 1032 1032 1032 1123 Chemistry Plasma Sodium (136 - 145 mmol/L) 135 Plasma Potassium (3.5 - 5.1 mmol/L) 3.1 Plasma Chloride (98 - 107 mmol/L) 98 CO2 (Enzymatic) (21 - 32 mmol/L) 25 BUN (7 - 18 mg/dL) 7 Creatinine (0.6 - 1.3 mg/dL) 1.0 Est GFR ( Amer) (mL/min) >60 Est GFR (Non-Af Amer) (mL/min) >60 Glucose (70 - 110 mg/dL) 144 Lactic Acid (0.4 - 2.0 mmol/L) 3.2 Plasma Calcium (8.5 - 10.1 mg/dL) 7.9 Total Bilirubin (0.0 - 1.0 mg/dL) 0.4 AST (15 - 37 U/L) 44 ALT (12 - 78 U/L) 32 Alkaline Phosphatase (46 - 116 U/L) 76 C-Reactive Protein Pending Total Protein (6.4 - 8.2 g/dL) 6.9 Albumin (3.3 - 5.0 g/dL) 2.9 Hematology WBC (4.5 - 11.5 K/uL) 14.9 RBC (4.50 - 5.90 M/uL) 4.77 Hgb (13.5 - 17.5 gm/dL) 14.4 Hct (41.0 - 53.0 %) 43.3 MCV (80 - 100 fL) 91 MCH (26 - 34 pg) 30 RDW (11.6 - 14.8 %) 17.8 Neut % (Auto) (50 - 75 %) 91.4 Lymph % (Auto) (25 - 40 %) 4.2 [place] % (Auto) (3 - 14 %) 4.3 Eos % (Auto) (0 - 4 %) 0 Baso % (Auto) (0 - 2 %) 0.1 Plt Count, EDTA (150 - 400 K/uL) 202 PUBS MCHC (31 - 37 g/dL) 33 Urines Urine Color YELLOW Urine Appearance CLEAR Urine pH (5.0 - 8.0) 6.0 Ur Specific [place] (1.010 - 1.030) 1.025 Urine Protein (NEGATIVE) 1+ Urine Ketones (NEGATIVE) NEGATIVE Urine Blood (NEGATIVE) 3+ Urine Nitrite (NEGATIVE) NEGATIVE Urine Bilirubin (NEGATIVE) NEGATIVE Urine Urobilinogen (0.2 - 1.0 EU/dL) 0.2 Ur Leukocyte Esterase (NEGATIVE) NEGATIVE Urine RBC (0 - 1 rbc/hpf) 0-1 Urine WBC (0 - 1 wbc/hpf) NONE SEEN Ur Epithelial Cells (0 - 5 EPI/hpf) 0-1 Urine Bacteria (NONE SEEN) TRACE (<1+) Urine Glucose (NEGATIVE) 1+ Urine Comment CULT NOT INDICATED 01/16 1400 Other Body Source CSF Tube Number 4 CSF Volume (CC) 4.0 CSF Appearance CLEAR CSF Color COLORLESS CSF WBC (0 - 5 WBC/mm3) 0 CSF RBC (0 - 5 RBC/mm3) 0 CSF Glucose (40 - 75 mg/dL) Pending CSF Total Protein (15 - 45 mg/dL) Pending Microbiology Date/Time Procedure - Status Source Growth 01/16 1406 Influenza Screen - COMP NASALPHAR 01/16 1403 Superficial Wound Culture - ORD LEG 01/16 1403 Gram Stain - ORD LEG 01/16 1400 CSF Culture - RECD CSF 01/16 1400 Gram Stain - RECD CSF 01/16 1315 Blood Culture - RECD BLOOD 01/16 1032 Blood Culture - RECD BLOOD Imaging IMPRESSION: 1. Resolving left parietal scalp contusion. 2. Moderate cortical atrophy Assessment and Plan Problem List 1. Cellulitis Plan Significant onset of cellulitis in the right lower extremity. There is signs of ulceration and redness tissue erythematous changes in the lower extremity. The cellulitic changes still appears to be circumferential. Patient will be started on IV vancomycin to 8 hours based pharmacy dosing schedule. Patient appears to have septic characteristics. Patient has an elevated lactic acid. Patient is a new onset seizure. Emergency department performed LP. Fluids are being evaluated. Patient has a long history of psoriasis. This is mostly affecting the Flexeril surfaces. Patient has not been on any biologic prescription for the condition. Patient has a topical ointment for care of the esions. 2. Tachycardia Plan Tachycardia in the setting of a cellulitis potential septic risk. Patient on diltiazem for blood pressure control. Continue with the same dosage. 3. New onset seizure Plan New-onset seizure. As of this morning. Following numbers and cultures from the LP. Given current findings. Patient at risk for meningitis. Patient was also given ceftriaxone 2 g every 24 4. Sepsis Plan Septic potential. Elevated lactic acid. New-onset seizure with fever. Following blood cultures, urine cultures. Continue fluid hydration. Plan vancomycin every 12 hours. Starting ceftriaxone 2 g every 24 5. Elevated lactic acid level Plan Elevated lactic acid levels. Will watch for any trends. 6. Seizure Plan New onset seizure. This is in the setting of a setting of fever and septic potential. 7. Psoriasis Plan Long-standing psoriasis affecting mostly lower extremity. As the probable source of the infectious agent. Following blood cultures. Skin cultures pendin 8. EtOH dependence Plan Patient with a history of alcohol use. Patient using alcohol on a daily basis. Patient will be placed on alcohol withdrawal protocol. Current status: Fair, unstable Anticipated discharge date: Anticipated discharge in 2 days Anticipated discharge placement: Home Patient care time: Time spent in chart review, patient interview, physical exam, CPOE, and care documentation: 70 minutes Visit to patient today: 1 Complexity of care: High Initial patient evaluation: Emergency department DVT prophylaxis: Lovenox 40 mg subcutaneous daily GI prophylaxis: 20 mg famotidine IV twice a day. E&M Codes Admission: Inpt-High/30358
[2017-01-16 15:44] VITALS: BP 144/90
--- NOTE | 2017-01-16 17:03 | DIAGNOSTIC IMAGING REPORT ---
PROCEDURE: XR TIBIA AND FIBULA - RIGHT INDICATION: CELLULITIS TECHNIQUE: AP and lateral views. COMPARISON: None. FINDINGS: Mild subcutaneous edema of the calf proximally but no radiopaque foreign bodies or subcutaneous air. Bones are unremarkable. IMPRESSION: 1. Subcutaneous edema consistent with a history of cellulitis.
--- NOTE | 2017-01-16 17:07 | DIAGNOSTIC IMAGING REPORT ---
PROCEDURE: XR TOE - RIGHT INDICATION: CELLULITIS TECHNIQUE: Three views. COMPARISON: Right foot x-ray 06/20/2016. FINDINGS: There is a 4 mm filiform radiopaque soft tissue foreign body in the distal and plantar aspect of the right great toe distal phalanx. There is soft tissue swelling. Bones are unremarkable. IMPRESSION: 1. Foreign body in the tip of the right great toe with soft tissue swelling suggestive of cellulitis
[2017-01-16 18:20] VITALS: BP 153/99
[2017-01-16 20:10] VITALS: BP 139/89
[2017-01-16 22:39] VITALS: BP 134/75
[2017-01-17 03:34] VITALS: BP 134/75
[2017-01-17 06:15] VITALS: BP 144/95
--- NOTE | 2017-01-17 08:18 | Progress Note ---
Subjective General NO CONCERNS Constitutional Fever. Denies: Chills, Sweats, Weakness, Malaise, Other. Eyes Pain, Vision Change, Conjunctival Inflammation, Eyelid Inflammation, Redness, Other. ENT Nasal Discharge. Denies: Ear Pain, Ear Discharge, Nose Pain, Nasal Congestion, Mouth Pain, Mouth Swelling, Throat Pain, Throat Swelling. Respiratory Denies: Cough, Dry, SOB w/exertion, Wheezing, Hemoptysis, Pleuritic Pain, Sputum. Cardiovascular Edema. Denies: Chest Pain, Palpitations, Orthopnea, PND, Light-headedness. Gastrointestinal Denies: Nausea, Vomiting, Abdominal Pain, Diarrhea, Constipation, Melena, Hematochezia. Genitourinary Denies: Dysuria, Frequency, Incontinence, Hematuria, Retention. Musculoskeletal Denies: Neck Pain, Shoulder Pain, Arm Pain, Back Pain, Hand Pain, Leg Pain, Foot Pain. Skin Rash (PLAQUE PSORIASIS ON SHINS), Lesions (CALUS ON R GREAT TOE), Other ( SWELLING AND REDNESS RLE IMPRO). Neurological Seizures (SEE DESCRIPTION IN H&P). Other DRINKS 2-3 BPD BUT NONE TUESDAY BECAUSE DIDN'T FEEL WELL Physical Exam Vital Signs / I&Os Vital Signs Date Time Temp Pulse Resp B/P Pulse O2 O2 Flow FiO2 Ox Delivery Rate 01/17 0615 99.3 95 16 144/95 98 Room Air 01/17 0334 99.0 123 16 134/75 96 Room Air 01/17 0158 100.9 111 20 01/16 2239 99.0 120 20 134/75 97 Room Air 01/16 2015 Room Air 01/16 2010 98.8 107 18 139/89 Room Air 01/16 1820 98.6 109 16 153/99 100 Nasal 2.0 Cannula 01/16 1600 Nasal 2.0 Cannula 01/16 1544 97.9 96 16 144/90 100 Room Air 0.0 01/16 1409 2.0 I&O 01/16 0800 01/16 1600 01/17 0000 Intake Total 410 Output Total 625 Balance -215 General Appearance Alert, Oriented X3, Cooperative, No acute distress HEENT Normal exam, PERRLA, EOMI, Moist mucous membranes Lungs Normal exam, Clear to auscultation Neck Normal exam, Supple, No JVD, No thyromegaly, No lymphadenopathy Cardiovascular Normal exam, Regular rate and rhythm, No murmurs, gallops, rubs Abdomen Normal exam, Normal bowel sounds, Soft, No tenderness, No guarding, No rebound Extremities DIMINISHED DP PULSES, R LE MILDLY SWOLLEN AND ERYTH WITH SLIGHT WARMTH. OLD SCABBED AREA R SHEIN. CALUS WITH HARDENED ECHYMOSIS R MEDIAL TOE TIP Skin No Rashes (PLAQUE PSORIASIS ON SHINS), No Breakdown (R BARTHOLOMEW OLD SCAB AND CALUS R GR) Neurological Normal exam, Strength 5/5 x4 ext's, No lateralizing signs Psych/Mental Status Mental status normal, AMNESTIC OF SEIZURE LAB Results Laboratory Tests 01/16 01/16 01/16 01/16 1032 1032 1032 1123 Chemistry Plasma Sodium (136 - 145 mmol/L) 135 Plasma Potassium (3.5 - 5.1 mmol/L) 3.1 Plasma Chloride (98 - 107 mmol/L) 98 CO2 (Enzymatic) (21 - 32 mmol/L) 25 BUN (7 - 18 mg/dL) 7 Creatinine (0.6 - 1.3 mg/dL) 1.0 Est GFR ( Amer) (mL/min) >60 Est GFR (Non-Af Amer) (mL/min) >60 Glucose (70 - 110 mg/dL) 144 Lactic Acid (0.4 - 2.0 mmol/L) 3.2 Plasma Calcium (8.5 - 10.1 mg/dL) 7.9 Total Bilirubin (0.0 - 1.0 mg/dL) 0.4 AST (15 - 37 U/L) 44 ALT (12 - 78 U/L) 32 Alkaline Phosphatase (46 - 116 U/L) 76 C-Reactive Protein (0.0 - 0.9 mg/dL) 17.1 Total Protein (6.4 - 8.2 g/dL) 6.9 Albumin (3.3 - 5.0 g/dL) 2.9 Hematology WBC (4.5 - 11.5 K/uL) 14.9 RBC (4.50 - 5.90 M/uL) 4.77 Hgb (13.5 - 17.5 gm/dL) 14.4 Hct (41.0 - 53.0 %) 43.3 MCV (80 - 100 fL) 91 MCH (26 - 34 pg) 30 RDW (11.6 - 14.8 %) 17.8 Neut % (Auto) (50 - 75 %) 91.4 Lymph % (Auto) (25 - 40 %) 4.2 [place] % (Auto) (3 - 14 %) 4.3 Eos % (Auto) (0 - 4 %) 0 Baso % (Auto) (0 - 2 %) 0.1 Plt Count, EDTA (150 - 400 K/uL) 202 PUBS MCHC (31 - 37 g/dL) 33 Urines Urine Color YELLOW Urine Appearance CLEAR Urine pH (5.0 - 8.0) 6.0 Ur Specific [place] (1.010 - 1.030) 1.025 Urine Protein (NEGATIVE) 1+ Urine Ketones (NEGATIVE) NEGATIVE Urine Blood (NEGATIVE) 3+ Urine Nitrite (NEGATIVE) NEGATIVE Urine Bilirubin (NEGATIVE) NEGATIVE Urine Urobilinogen (0.2 - 1.0 EU/dL) 0.2 Ur Leukocyte Esterase (NEGATIVE) NEGATIVE Urine RBC (0 - 1 rbc/hpf) 0-1 Urine WBC (0 - 1 wbc/hpf) NONE SEEN Ur Epithelial Cells (0 - 5 EPI/hpf) 0-1 Urine Bacteria (NONE SEEN) TRACE (<1+) Urine Glucose (NEGATIVE) 1+ Urine Comment CULT NOT INDICATED 01/16 01/16 01/16 01/16 01/16 1400 1600 1600 1950 1950 Chemistry Plasma Potassium (3.5 - 5.1 mmol/L) 3.4 Lactic Acid (0.4 - 2.0 mmol/L) Cancelled 1.7 Procalcitonin Cancelled Other Body Source CSF Tube Number 4 CSF Volume (CC) 4.0 CSF Appearance CLEAR CSF Color COLORLESS CSF WBC (0 - 5 WBC/mm3) 0 CSF RBC (0 - 5 RBC/mm3) 0 CSF Glucose (40 - 75 mg/dL) 93 CSF Total Protein (15 - 45 mg/dL) 33.7 01/16 01/17 1950 0520 Chemistry Plasma Sodium (136 - 145 mmol/L) 140 Plasma Potassium (3.5 - 5.1 mmol/L) 2.7 Plasma Chloride (98 - 107 mmol/L) 104 CO2 (Enzymatic) (21 - 32 mmol/L) 24 BUN (7 - 18 mg/dL) 6 Creatinine (0.6 - 1.3 mg/dL) 0.7 Est GFR ( Amer) (mL/min) >60 Est GFR (Non-Af Amer) (mL/min) >60 Glucose (70 - 110 mg/dL) 112 Plasma Calcium (8.5 - 10.1 mg/dL) 7.4 Plasma Magnesium (1.8 - 2.4 mg/dL) 1.6 Total Bilirubin (0.0 - 1.0 mg/dL) 0.4 AST (15 - 37 U/L) 40 ALT (12 - 78 U/L) 27 Alkaline Phosphatase (46 - 116 U/L) 68 Total Protein (6.4 - 8.2 g/dL) 5.5 Albumin (3.3 - 5.0 g/dL) 2.4 Procalcitonin (0 - 0.5 ng/mL) 2.1 Hematology WBC (4.5 - 11.5 K/uL) 13.8 RBC (4.50 - 5.90 M/uL) 4.33 Hgb (13.5 - 17.5 gm/dL) 12.9 Hct (41.0 - 53.0 %) 39.7 MCV (80 - 100 fL) 92 MCH (26 - 34 pg) 30 RDW (11.6 - 14.8 %) 18.1 Neut % (Auto) (50 - 75 %) 79.7 Lymph % (Auto) (25 - 40 %) 15.1 [place] % (Auto) (3 - 14 %) 4.9 Eos % (Auto) (0 - 4 %) 0.1 Baso % (Auto) (0 - 2 %) 0.2 Plt Count, EDTA (150 - 400 K/uL) 174 PUBS MCHC (31 - 37 g/dL) 33 Microbiology Date/Time Procedure - Status Source Growth 01/16 1406 Influenza Screen - COMP NASALPHAR 01/16 1403 Superficial Wound Culture - COLB LEG 01/16 1403 Gram Stain - COLB LEG 01/16 1400 CSF Culture - RES CSF 01/16 1400 Gram Stain - RES CSF 01/16 1315 Blood Culture - RECD BLOOD 01/16 1032 Blood Culture - RECD BLOOD Assessment and Plan Problem List 1. Cellulitis Plan CONTINUE DAILY ROCEPHIN AND VANCO 2. Seizure Plan PROBABLY FEVER AND ALCOHOL ABSTINENCE 3. EtOH dependence Plan NO EVIDENCE OF DT'S 4. Psoriasis Plan STABLE JUST WITH TOPICAL DAILY 5. Skin ulcer Plan NEED SOMETHING TO SOFTEN R TOE CALUS E&M Codes Rounding: Inpt-Moderate/71060 Discharge: Inpt <30 min spent/[id number]
[2017-01-17 10:27] VITALS: BP 142/92
[2017-01-17 14:39] VITALS: BP 137/87
[2017-01-17 18:00] VITALS: BP 128/78
--- NOTE | 2017-01-17 19:23 | CONSULTATION REPORT ---
DATE OF CONSULTATION: 01/17/2017 CHIEF COMPLAINT: 1. Right great toe, a localized callus 2. X-ray revealed foreign body HISTORY OF PRESENT ILLNESS: The patient was admitted to [facility] on 01/16/2017 with admitting diagnosis of fever, chills, possible sepsis. He is well-known patient of ours that we have at [facility] where we had done serial debridements and actually application of Apligrafs. Healed up his wound and was discharged. He has had custom orthoses made. He said he has not had any problems with the toe, just his right leg became red, hot, does not recall much. MEDICAL/SURGICAL HISTORY: Past medical history: Dehydration, hypertension. Surgical history: Hip surgery, inguinal surgery, shoulder surgery and spleen surgery. PRIMARY CARE PROVIDER: Arnie Worthy MD MEDICATIONS: 1. Diltiazem HCL oral. 2. Furosemide. PHYSICAL EXAMINATION: GENERAL: The patient is alert, oriented x3. EXTREMITIES: Lower extremity/Vascular: DP and PT pulses are palpable. Subpapillary venous plexus capillary refill within normal limits. His right great toe presents with a callosity looking on the plantar medial aspect. Some localized erythema. Lower leg is hot, swollen with cellulitis and some tenderness with calf compression. NEUROLOGIC: Deep tendon reflexes, epicritic sensations are intact. LAB/IMAGING: Imaging: Revealed a suspected foreign body, 4 mm filiform radiopaque soft tissue foreign body in the distal plantar aspect of the right great toe distal phalanx. IMPRESSION: 1. Callosity of the right great toe. 2. Foreign body, noncontributory to his cellulitis of the lower leg, in my opinion. PLAN: The patient will be continued here for his hospital course. Do not believe the foreign body, which was seen on x-ray, evaluated by myself and then read by the radiologist is a contributing factor. The toe, particularly where the foreign body is located, there are no clinical signs of irritation or infection. The plantar medial aspect was just some devitalized tissue that needed to be removed. He tolerated procedure well. Locally we will just do a topical antibiotic. Follow back with me as needed in my clinic. PROCEDURE NOTE: At this time at bedside with a #15 blade, the nonviable tissue was removed full-thickness. There is no sinus. There is a small laceration, which is very superficial in nature. There was no purulent drainage, more serosanguineous. No malodor. The patient tolerated procedure well without complication.
[2017-01-17 22:56] VITALS: BP 127/85
[2017-01-18 03:06] VITALS: BP 153/97
--- NOTE | 2017-01-18 07:02 | Progress Note ---
Subjective General Denies anxiety. Sl. tremulous. Slow get up and go time. R leg still sore , red , and warm. Constitutional Weakness. Denies: Fever, Chills, Sweats, Malaise, Other. Eyes Denies: Pain, Vision Change, Conjunctival Inflammation, Eyelid Inflammation, Redness, Other. ENT Denies: Ear Pain, Ear Discharge, Nose Pain, Nasal Discharge, Nasal Congestion, Mouth Pain, Mouth Swelling, Throat Pain, Throat Swelling, Other. Respiratory Denies: Cough, Dry, SOB w/exertion, Wheezing, Hemoptysis, Pleuritic Pain, Sputum , Other. Cardiovascular Denies: Chest Pain, Palpitations, Orthopnea, PND, Edema, Light-headedness, Other. Gastrointestinal Diarrhea (5 x and watery). Denies: Nausea, Vomiting, Abdominal Pain, Constipation, Melena, Hematochezia, Other. Genitourinary Denies: Dysuria, Frequency, Incontinence, Hematuria, Retention, Other. Musculoskeletal Denies: Neck Pain, Shoulder Pain, Arm Pain, Back Pain, Hand Pain, Leg Pain, Foot Pain, Other. Skin Denies: Rash, Lesions, Jaundice, Bruising. Neurological Weakness, Incoordination, Other (tremulous). Denies: Numbness, Change in speech , Confusion, Seizures. Physical Exam Vital Signs / I&Os Vital Signs Date Time Temp Pulse Resp B/P Pulse O2 O2 Flow FiO2 Ox Delivery Rate 01/18 0306 98.4 100 18 153/97 98 Room Air 01/17 2256 98.8 111 22 127/85 98 Room Air 01/17 1800 99.0 112 20 128/78 100 Room Air 01/17 1540 Room Air 01/17 1439 98.8 103 20 137/87 98 Room Air 01/17 1027 98.2 97 20 142/92 97 Room Air I&O 01/17 0800 / 1600 05/02 0000 Intake Total 2450 570 2070 Output Total 1450 1800 Balance 1000 570 270 General Appearance Alert, Oriented X3, Cooperative, No acute distress HEENT Normal exam Lungs Normal exam Neck Supple, No JVD, No masses, No lymphadenopathy Cardiovascular Normal exam Abdomen Normal exam, Soft, No tenderness Extremities redness right leg Skin No Rashes (R toe pared), R leg still eryth Neurological Normal exam, Normal speech, Normal tone, Sensation intact, No lateralizing signs Psych/Mental Status Mental status normal, Mood normal LAB Results Laboratory Tests 01/17 01/18 1150 0525 Chemistry Plasma Sodium (136 - 145 mmol/L) 140 Plasma Potassium (3.5 - 5.1 mmol/L) 2.7 Plasma Chloride (98 - 107 mmol/L) 106 CO2 (Enzymatic) (21 - 32 mmol/L) 24 BUN (7 - 18 mg/dL) 4 Creatinine (0.6 - 1.3 mg/dL) 0.7 Est GFR ( Amer) (mL/min) >60 Est GFR (Non-Af Amer) (mL/min) >60 Glucose (70 - 110 mg/dL) 111 Plasma Calcium (8.5 - 10.1 mg/dL) 7.6 Plasma Magnesium (1.8 - 2.4 mg/dL) 1.8 Hematology WBC (4.5 - 11.5 K/uL) 10.1 RBC (4.50 - 5.90 M/uL) 4.27 Hgb (13.5 - 17.5 gm/dL) 12.8 Hct (41.0 - 53.0 %) 39.2 MCV (80 - 100 fL) 92 MCH (26 - 34 pg) 30 RDW (11.6 - 14.8 %) 18.1 Neut % (Auto) (50 - 75 %) 60.7 Lymph % (Auto) (25 - 40 %) 29.2 [place] % (Auto) (3 - 14 %) 9.2 Eos % (Auto) (0 - 4 %) 0.3 Baso % (Auto) (0 - 2 %) 0.6 Plt Count, EDTA (150 - 400 K/uL) 167 PUBS MCHC (31 - 37 g/dL) 33 Toxicology Vancomycin Trough (10.0 - 20.0 ug/mL) 10.8 Assessment and Plan Problem List 1. Cellulitis Plan Change to oral abc after noon dose and d/c on keflex + bactrim 2. Seizure Plan Probably alxohol related. Consider EEG 3. EtOH dependence Plan Discussed with patient at length.
[2017-01-18 07:23] VITALS: BP 146/94
[2017-01-18 10:20] VITALS: BP 143/91
--- NOTE | 2017-01-18 12:26 | Provider's Discharge Care Plan ---
Problem, Goal, Plan Problem List 1. Cellulitis Goals: Improve disease control, Therapeutic intervention Instructions: MEDICAL PHYSICS PROFESSOR 2 ANTIBIOTIC Rx AT PHARMACY TODAY 2. EtOH dependence Goals: Therapeutic intervention Instructions: Follow up as directed, Take meds as directed
--- NOTE | 2017-01-18 12:26 | Provider's Discharge Care Plan ---
Problem, Goal, Plan Problem List 1. Cellulitis Goals: Improve disease control, Therapeutic intervention Instructions: LABORER HEADING 2 ANTIBIOTIC Rx AT PHARMACY TODAY 2. EtOH dependence Goals: Therapeutic intervention Instructions: Follow up as directed, Take meds as directed
[2017-01-18] MEDS ORDERED: BACTRIM DS1 TAB PO (12:31)
[2017-01-18] MEDS ORDERED: LORAZEPAM1 MG PO (12:31)
[2017-01-18] MEDS ORDERED: CEPHALEXIN500 MG PO (12:31)
--- NOTE | 2017-01-19 22:42 | ED MED RECONCILIATION SUMMARY ---
Patient: HILLARY COPE Medication Reconciliation Report [facility] VisitID: [id number] [address] [place] [address] 56y, M Registration Date/Time: 01/16/2017 Weight: 97.5 kg Height/Length: 72 in. BMI: 29.2 ALLERGIES: Hydrocodone The patient's Home Medications are listed below: THE FOLLOWING MEDICATIONS NEED TO BE RECONCILED: Diltiazem HCl Oral Furosemide Oral The source(s) of the original Home Medication information: Not obtained. The following Medications were given to the patient in the Emergency Department: Toradol [IVP] IVP 30 mg, administered: 01/16/2017 10:40:00 AM Acetaminophen [PO] PO 1000 mg, administered: 01/16/2017 10:43:00 AM IV NS IV Fluids bolus 1000 mL wide open, administered: 01/16/2017 9:50:00 AM Vancomycin [IVPB] IVPB bolus 0, then 2 gm 200 mL/hr, administered: 01/16/2017 11:21:00 AM IV NS IV Fluids bolus 0, then 50 mL/hr, administered: 01/16/2017 11:42:00 AM Versed [IVP] IVP 2 mg, administered: 01/16/2017 1:50:00 PM Versed [IVP] IVP 2 mg, administered: 01/16/2017 1:54:00 PM Versed [IVP] IVP 2 mg, administered: 01/16/2017 2:00:00 PM The following Medications were prescribed to the patient: None.
--- NOTE | 2017-01-19 22:42 | ED MAR SUMMARY ---
..... Medication Administration Record [facility] [address] [place] [address] Patient: HILLARY COPE Visit ID: [id number] 56y, M Weight: 97.5 kg Height/Length: 72 in BMI: 29.2 ALLERGIES: Hydrocodone Start 09:50 01/16/2017 Geovanna Nettles R.N., Stop 11:14 01/16/2017 Geovanna Nettles R.N. Medication Administered: IV NS (SALINE), Dose: IV Fluids, Bolus: 1000 mL wide open, Dispensed: 1000 mL bag, Site: #1 right AC. Medication Ordered: IV NS : initial bolus 1000 mL (1000 mL/hr), then none - (NOW). Given 10:40 01/16/2017 Geovanna Nettles R.N. Medication Administered: TORADOL [IVP], Dose: 30 mg IVP over 2 minute(s), Site: #1 right AC. Medication Ordered: Toradol IV 30 mg (NOW). Given 10:43 01/16/2017 Geovanna Nettles R.N. Medication Administered: ACETAMINOPHEN [PO] (APAP), Dose: 1000 mg Tablets PO. Medication Ordered: Acetaminophen PO 1,000 mg (NOW). Start 11:21 01/16/2017 Geovanna Nettles R.N., Stop 14:02 01/16/2017 Geovanna Nettles R.N. Medication Administered: VANCOMYCIN [IVPB], Dose: 2 gm IVPB over 1 hour(s), Rate: 200 mL/hr, Dispensed: 400 mL bag, Site: #2 left forearm. Medication Ordered: Vancomycin IV 2 gm/500 mL (NOW). Start 11:42 01/16/2017 Geovanna Nettles R.N. Medication Administered: IV NS (SALINE), Dose: IV Fluids over 20 hour(s), Rate: 50 mL/hr, Dispensed: 1000 mL bag, Site: #1 right AC. Medication Ordered: IV NS with Normal Saline 1 Liter: initial bolus none -, then TKO - for X1 (NOW). Given 13:50 01/16/2017 Geovanna Nettles R.N. Medication Administered: VERSED [IVP] (MIDAZOLAM HCL), Dose: 2 mg IVP over 30 second(s), Site: #1 right AC. Medication Ordered: Versed IV 2 mg (NOW). Given 13:54 01/16/2017 Geovanna Nettles RSarathN. Medication Administered: VERSED [IVP] (MIDAZOLAM HCL), Dose: 2 mg IVP over 30 second(s), Site: #1 right AC. Medication Ordered: Versed IV 2 mg (NOW). Given 14:00 01/16/2017 Geovanna Nettles RSarathN. Medication Administered: VERSED [IVP] (MIDAZOLAM HCL), Dose: 2 mg IVP over 2 minute(s), Site: #1 right AC. Medication Ordered: Versed IV 2 mg (NOW).
--- NOTE | 2017-01-19 22:42 | ED DISCHARGE INSTRUCTIONS ---
Patient: HILLARY COPE General Instructions [facility] VisitID: [id number] [address] [place] [address] 56y, M Registration Date/Time: 01/16/2017 New onset generalized seizure of unknown cause, associated with illness. Cellulitis of the right lower leg and right ankle. (Electronically signed by Kathya Ng MD 01/19/2017 22:42)
--- NOTE | 2017-01-19 22:42 | ED MED RECONCILIATION SUMMARY ---
Patient: HILLARY COPE Medication Reconciliation Report [facility] VisitID: [id number] [address] [place] [address] 56y, M Registration Date/Time: 01/16/2017 Weight: 97.5 kg Height/Length: 72 in. BMI: 29.2 ALLERGIES: Hydrocodone The patient's Home Medications are listed below: THE FOLLOWING MEDICATIONS NEED TO BE RECONCILED: Diltiazem HCl Oral Furosemide Oral The source(s) of the original Home Medication information: Not obtained. The following Medications were given to the patient in the Emergency Department: Toradol [IVP] IVP 30 mg, administered: 01/16/2017 10:40:00 AM Acetaminophen [PO] PO 1000 mg, administered: 01/16/2017 10:43:00 AM IV NS IV Fluids bolus 1000 mL wide open, administered: 01/16/2017 9:50:00 AM Vancomycin [IVPB] IVPB bolus 0, then 2 gm 200 mL/hr, administered: 01/16/2017 11:21:00 AM IV NS IV Fluids bolus 0, then 50 mL/hr, administered: 01/16/2017 11:42:00 AM Versed [IVP] IVP 2 mg, administered: 01/16/2017 1:50:00 PM Versed [IVP] IVP 2 mg, administered: 01/16/2017 1:54:00 PM Versed [IVP] IVP 2 mg, administered: 01/16/2017 2:00:00 PM The following Medications were prescribed to the patient: None.
--- NOTE | 2017-01-19 22:42 | ED MAR SUMMARY ---
..... Medication Administration Record [facility] [address] [place] [address] Patient: HILLARY COPE Visit ID: [id number] 56y, M Weight: 97.5 kg Height/Length: 72 in BMI: 29.2 ALLERGIES: Hydrocodone Start 09:50 01/16/2017 Geovanna Nettles R.N., Stop 11:14 01/16/2017 Geovanna Nettles R.N. Medication Administered: IV NS (SALINE), Dose: IV Fluids, Bolus: 1000 mL wide open, Dispensed: 1000 mL bag, Site: #1 right AC. Medication Ordered: IV NS : initial bolus 1000 mL (1000 mL/hr), then none - (NOW). Given 10:40 01/16/2017 Geovanna Nettles R.N. Medication Administered: TORADOL [IVP], Dose: 30 mg IVP over 2 minute(s), Site: #1 right AC. Medication Ordered: Toradol IV 30 mg (NOW). Given 10:43 01/16/2017 Geovanna Nettles R.N. Medication Administered: ACETAMINOPHEN [PO] (APAP), Dose: 1000 mg Tablets PO. Medication Ordered: Acetaminophen PO 1,000 mg (NOW). Start 11:21 01/16/2017 Geovanna Nettles R.N., Stop 14:02 01/16/2017 Geovanna Nettles R.N. Medication Administered: VANCOMYCIN [IVPB], Dose: 2 gm IVPB over 1 hour(s), Rate: 200 mL/hr, Dispensed: 400 mL bag, Site: #2 left forearm. Medication Ordered: Vancomycin IV 2 gm/500 mL (NOW). Start 11:42 01/16/2017 Geovanna Nettles R.N. Medication Administered: IV NS (SALINE), Dose: IV Fluids over 20 hour(s), Rate: 50 mL/hr, Dispensed: 1000 mL bag, Site: #1 right AC. Medication Ordered: IV NS with Normal Saline 1 Liter: initial bolus none -, then TKO - for X1 (NOW). Given 13:50 01/16/2017 Geovanna Nettles R.N. Medication Administered: VERSED [IVP] (MIDAZOLAM HCL), Dose: 2 mg IVP over 30 second(s), Site: #1 right AC. Medication Ordered: Versed IV 2 mg (NOW). Given 13:54 01/16/2017 Geovanna Nettles RSarathN. Medication Administered: VERSED [IVP] (MIDAZOLAM HCL), Dose: 2 mg IVP over 30 second(s), Site: #1 right AC. Medication Ordered: Versed IV 2 mg (NOW). Given 14:00 01/16/2017 Geovanna Nettles RSarathN. Medication Administered: VERSED [IVP] (MIDAZOLAM HCL), Dose: 2 mg IVP over 2 minute(s), Site: #1 right AC. Medication Ordered: Versed IV 2 mg (NOW).
--- NOTE | 2017-01-19 22:42 | ED DISCHARGE INSTRUCTIONS ---
Patient: HILLARY COPE General Instructions [facility] VisitID: [id number] [address] [place] [address] 56y, M Registration Date/Time: 01/16/2017 New onset generalized seizure of unknown cause, associated with illness. Cellulitis of the right lower leg and right ankle. (Electronically signed by Kathya Ng MD 01/19/2017 22:42)
--- NOTE | 2017-01-20 13:12 | Discharge Summary ---
Discharge Summary Report Admit Date 01/16/17 Discharge Date 01/18/17 Admission Diagnosis CELLULITIS; SEIZURE Discharge Diagnosis CELLULITIS RIGHT LEG; ALCOHOL WITHDRAWL SYNDROME Brief History PT PRESENTED WITH SEIZURE AND LOC. ALSO FEBRILE AND WITH RIGHT LEG CELLULITIS Hospital Course ER W/U REVEALED ELEVATED WBC AND LACTATE. CT HEAD AND LP NEGATIVE. CULTURES TAKEN AND WERE NEGATIVE. DEVELOPED SOME AGGITATION AND MILD WITHDRAWL SYMPTOMS. IV ANTIBIOTICS CONTINUED UNTIL CULTURES NEGATIVE X 2 DAYS AND THEN CHANGED TO ORAL BACTRIM + KEFLEX AT D/C. General Appearance Alert, Oriented X3, No acute distress HEENT Atraumatic, PERRLA, EOMI, Mucous membran moist/pink Lungs Clear to auscultation Cardiovascular Regular Rate, No murmurs Abdomen Normal bowel sounds, Soft, No tenderness Skin RED CELLULITIS OF R LEG IMPROVING. CALLUS OF R GREAT TOE PARED BY FENCE MACHINE OPERATOR Neurological Normal speech, Strength at 5/5 X4 ext, Normal tone, Sensation intact, SL. UNSTEADY GAIT Psych/Mental Status Mental status NL, Mood NL Discharge Instructions/Meds BACTRIM + KEFLEX ATIVAN FOR WITHDRAWL OR ANXIETY F/U IN 3 DAYS AT [facility] E&M Codes Discharge: Inpt >30 min spent/[id number]
--- NOTE | 2017-01-20 13:12 | Discharge Summary ---
Discharge Summary Report Admit Date 01/16/17 Discharge Date 01/18/17 Admission Diagnosis CELLULITIS; SEIZURE Discharge Diagnosis CELLULITIS RIGHT LEG; ALCOHOL WITHDRAWL SYNDROME Brief History PT PRESENTED WITH SEIZURE AND LOC. ALSO FEBRILE AND WITH RIGHT LEG CELLULITIS Hospital Course ER W/U REVEALED ELEVATED WBC AND LACTATE. CT HEAD AND LP NEGATIVE. CULTURES TAKEN AND WERE NEGATIVE. DEVELOPED SOME AGGITATION AND MILD WITHDRAWL SYMPTOMS. IV ANTIBIOTICS CONTINUED UNTIL CULTURES NEGATIVE X 2 DAYS AND THEN CHANGED TO ORAL BACTRIM + KEFLEX AT D/C. General Appearance Alert, Oriented X3, No acute distress HEENT Atraumatic, PERRLA, EOMI, Mucous membran moist/pink Lungs Clear to auscultation Cardiovascular Regular Rate, No murmurs Abdomen Normal bowel sounds, Soft, No tenderness Skin RED CELLULITIS OF R LEG IMPROVING. CALLUS OF R GREAT TOE PARED BY COSMETOLOGY EDUCATOR Neurological Normal speech, Strength at 5/5 X4 ext, Normal tone, Sensation intact, SL. UNSTEADY GAIT Psych/Mental Status Mental status NL, Mood NL Discharge Instructions/Meds BACTRIM + KEFLEX ATIVAN FOR WITHDRAWL OR ANXIETY F/U IN 3 DAYS AT [facility] E&M Codes Discharge: Inpt >30 min spent/[id number]
== END 2017-01-18 13:40 | disposition home or self-care (01) | DRG 982 ==
LOC: ED SRH 09:59 → TRANS SRH 12:54 → ACUTE2 SRH 14:03
PROVIDERS: ADMIT Emergency Medicine
PROC: 009U3ZX Drainage of Spinal Canal, Percutaneous Approach, Diagnostic (ICD-10-PCS; principal; 2017-01-16)
PROC: 0HBMXZZ Excision of Right Foot Skin, External Approach (ICD-10-PCS; 2017-01-17)
DX: F10.239 Alcohol dependence with withdrawal, unspecified (principal); G40.89 Other seizures; L03.115 Cellulitis of right lower limb; L84 Corns and callosities; I10 Essential (primary) hypertension; R22.43 Localized swelling, mass and lump, lower limb, bilateral; L40.9 Psoriasis, unspecified